=== PATIENT | female | born 1995 | race Caucasian/White ===

== ENCOUNTER 2018-02-27 09:40 | Outpatient (CLI) | payer OTHER ==
[~2018-02-27 09:40] MED LIST: NO TOMA MEDICAMENTO
== END 2018-02-27 17:00 | disposition home or self-care (01) ==
LOC: TOM 09:40
DX: Q43.3 Congenital malformations of intestinal fixation (principal)

== ENCOUNTER 2019-09-14 16:02 | Outpatient (CLI) | payer OTHER | END 2019-09-14 16:05 | disposition home or self-care (01) | LOC: RAD 16:02 | DX: J45.31 Mild persistent asthma with (acute) exacerbation (principal) ==

== ENCOUNTER → 2023-08-26 13:32 | Outpatient (CLI) | payer OTHER ==
[2023-08-26 14:35] LABS: T4 TOTAL 8.32 UG/DL (4.8-13.9); TSH 1.49 uIU/mL (0.358-3.74)
== END | disposition home or self-care (01) ==
LOC: LAB 10:19
PROVIDERS: ATTEND Internal Medicine
DX: E04.2 Nontoxic multinodular goiter (principal)

== ENCOUNTER 2023-08-26 14:10 | Outpatient (CLI) | payer OTHER | END 2023-08-26 14:15 | disposition home or self-care (01) | LOC: SONOGRAMA 14:10 | PROVIDERS: ATTEND Internal Medicine | DX: E04.1 Nontoxic single thyroid nodule (principal) ==